=== PATIENT | female | born 1990 | race Caucasian/White ===

== ENCOUNTER 2017-01-02 19:04 | Emergency (ER) | payer OTHER | END 2017-01-02 22:00 | disposition home or self-care (01) | LOC: ER 19:04 | DX: R68.84 Jaw pain (principal); W22.8XXA Striking against or struck by other objects, initial encounter; K21.9 Gastro-esophageal reflux disease without esophagitis; Z88.6 Allergy status to analgesic agent | CPT/HCPCS: 70486; 81025; 96372; 99070; 99283-25; 99284 ==

== ENCOUNTER 2017-01-07 18:55 | Emergency (ER) | payer OTHER | END 2017-01-07 23:55 | disposition left against medical advice (07) | LOC: ER 18:55 | DX: Z53.21 Procedure and treatment not carried out due to patient leaving prior to being seen by health care provider (principal) | CPT/HCPCS: 99211 ==

== ENCOUNTER 2017-02-19 20:28 | Emergency (ER) | payer OTHER | END 2017-02-19 21:28 | disposition home or self-care (01) | LOC: ER 20:28 | DX: H66.92 Otitis media, unspecified, left ear (principal); H61.302 Acquired stenosis of left external ear canal, unspecified; Z88.6 Allergy status to analgesic agent | CPT/HCPCS: 99070; 99282 ==